=== PATIENT | male | born 1960 | race African-American/Black ===

== ENCOUNTER 2018-04-01 13:13 | Outpatient (CLI) | payer MEDICAID ==
[~2018-04-01] VITALS: Ht 167.6 cm; Wt 64.4 kg
[2018-04-01 13:37] VITALS: BP 110/77
[2018-04-01] MEDS ORDERED: VITAMIN B COMP1 EAC2 ORAL (14:41)
[2018-04-01] MEDS ORDERED: prostate med (14:41)
[2018-04-01] MEDS ORDERED: LACTULOSE20 GM/301 ORAL (14:41)
[2018-04-01] MEDS ORDERED: BP med (14:41)
--- NOTE | 2018-04-02 09:27 | GI Initial Consult Note ---
History of Present Illness General Date patient seen: Apr 02, 2018 Time patient seen: 09:18 Referring physician: HMO Reason for Consultation: HEP C., Weight Loss Present Illness HPI 57 year old male patient presents today with c/o of unintentional weight loss over the past 2 years; more specifically 160lbs in 2016, now presently at 142lbs. States he also has a decrease in appetite. History of Hep C and encephalopathy. The patient has no history of colonoscopy. No history of blood transfusion. No signs of abuse or neglect. Patient is not fall risk. Home Meds Reported Medications [prostate med] No Conflict Check 04/01/18 [BP med ] No Conflict Check 04/01/18 Vitamin B Complex (VITAMIN B COMPLEX) 1 Each Capsule, 1 CAP ORAL DAILY, CAP 0 Refills 04/01/18 Lactulose (LACTULOSE*) 20 Gm/30 Ml Solution, 30 ML ORAL TID, ML 0 Refills 04/01/18 Med list reviewed/reconciled: Yes Allergies: Coded Allergies: No Known Allergies (Unverified , 04/01/18) Patient History History Provided By: Patient, Medical Record H Narrative Hep C HTN BPH Past Surgical History: Liver Bx in 1981 >> negative appendectomy Family History Narrative Father had CA Social History: Reports: smoking, alcohol use, other - caffiene use Review of Systems All Other Systems: negative except mentioned in HPI Physical Exam Vital Signs Date Time Temp Pulse Resp B/P (MAP) Pulse Ox O2 Delivery O2 Flow Rate FiO2 04/01/18 13:37 98.4 98 18 110/77 96 98.4 Sp02 EP Interpretation: reviewed, normal General Appearance: well appearing, no apparent distress, alert Head: normocephalic EENT: PERRL/EOMI, normal ENT inspection Neck: supple Respiratory: normal breath sounds, no respiratory distress Cardiovascular: normal rate Gastrointestinal: normal inspection, non tender, soft, normal bowel sounds, non -distended Rectal: deferred Genitourinary: deferred Musculoskeletal: normal inspection, back normal Neurologic: normal inspection, alert, oriented x3, responsive Psychiatric: normal inspection, judgement/insight normal, memory normal Skin: normal inspection, normal color, no rash, warm/dry, palpation normal, well hydrated Lymphatic: normal inspection, no adenopathy GI: Plan Problems: (1) Weight loss (2) Hepatitis C (3) Colonoscopy planned Plan Plan schedule for colonoscopy screening once PA obtain, will contact patient. - CLD & (Nulytely/Suprep/Movi-Prep) prep instructions given and acknowledged by patient. - NPO @ [place] day prior procedure explained. work up for Hep C Tx Seen with Dr. Bee. Thank you for this patient referral. The patient was seen and examined at bedside and all new and available data was reviewed in the patients chart. I agree with the above findings, impression and plan. (Patient seen earlier today. Signature stamp does not reflect patient encounter time.). - MD Dariana ReeseSoutheastern [facility] SPECIAL [employer] OFFICER Apr 02, 2018 09:27
== END 2018-04-01 13:43 | disposition home or self-care (01) ==
LOC: PAN 13:13
DX: R63.4 Abnormal weight loss (principal); B19.20 Unspecified viral hepatitis C without hepatic coma; G93.40 Encephalopathy, unspecified; I10 Essential (primary) hypertension
CPT/HCPCS: 99202